=== PATIENT | female | born 1955 | race Caucasian/White ===

== ENCOUNTER 2018-03-25 13:32 | Emergency (ER) | payer SELFPAY | END 2018-03-25 15:57 | disposition home or self-care (01) | LOC: ED 13:32 ==

== ENCOUNTER 2018-12-15 12:27 | Inpatient (IN) | payer MEDICAID ==
[~2018-12-15] VITALS: Ht 157.5 cm; Wt 65.3 kg
[2018-12-15 12:39] VITALS: Ht 157.5 cm; Wt 65.3 kg
--- NOTE | 2018-12-15 12:42 | NUR ---
EKG IN PROGRESS IN TRIAGE.
[2018-12-15 12:56] LABS: BASOPHIL % 0.6 % (0-2); PLATELET COUNT 307 x10^3mcL (130-400)
[2018-12-15 13:03] LABS: RED CELL DISTRIBUTION WIDTH 15.3 % (11.5-14.5)
[2018-12-15 13:25] LABS: CALCIUM 9.5 mg/dL (8.5-10.1); CARBON DIOXIDE 29.1 mmol/L (21-32)
[2018-12-15 13:29] LABS: ALBUMIN 3.6 g/dL (3.4-5.0); BILIRUBIN TOTAL 0.2 mg/dL (0.20-1.00)
--- NOTE | 2018-12-15 13:39 | NUR ---
REPORT GIVEN TO HUMERA BROWN, UPDATED ON STATUS, LABS AND VITALS. PT STABLE FOR TRANSFER. VSS. BELONGINGS WITH PT.
--- NOTE | 2018-12-15 13:59 | NUR ---
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 PT NOW DENIES ANY CHEST PAIN BUT NOW COMPLAINS OF A HEADACHE. DENIES ANY VISION CHANGES. DENIES ANY RECENT FEVERS/CHILLS. RESP EVEN AND UNLABORED, IN NAD. SKIN W/D/I. DTR AT BEDSIDE. NSR ON MONITOR AT THIS TIME.
--- NOTE | 2018-12-15 16:23 | NUR ---
NO ACUTE CHANGES IN CONDITION, PT IN NAD. RESTING ON GURNEY WITH EYES CLOSED. VSS, NSR ON MONITOR.
[2018-12-15] MEDS ORDERED: ATORVASTATIN CA40 M1 PO (16:29)
[2018-12-15] MEDS ORDERED: LOSARTAN POTASS25 M1 PO (16:29)
[2018-12-15 16:47] LABS: FREE T4 0.89 ng/dL (0.76-1.46); FREE THYROXINE INDEX 2.7 ug/dL (1.4-4.5); T4(THYROXINE) 7.4 ug/dL (4.7-13.3)
[2018-12-15 16:50] LABS: T3 TOTAL 0.99 ng/mL
[2018-12-15 16:59] LABS: CHOLESTEROL/HDL RATIO 5.9
[2018-12-15 17:33] VITALS: BP 141/70
--- NOTE | 2018-12-15 17:41 | NUR ---
RECEIVED PT FROM ER, PT ADMIT FOR CHEST PAIN, PT IS A/O X4, VERBAL RESPONSIVE, LUNG SOUND CLEAR BILATERAL,NO COUGH, NO SOB, PT IS ON TELE 1, SBR WITH OCCASIONALLY PAC, DENY ANY CHEST PAIN AT THIS MOMENT, BOWEL SOUND PRESENT ALL 4 QUADRANTS, NO DISTENTION, PT C/O ACID REFLEX AT THIS MOMENT, C/O LEFT LOWER QUARANT PAIN 2/10, ALSO C/O CONSTIPATION. PEDAL PULSE PRESENT BOTH FEET, NO EDEMA, IV AT LEFT AC, NO LEAKING, NO INFITLRATION. ALL ADLS ASSIST, ALL NEED MET, CALL LIGHT IN REACH, WILL CONTINUE TO MONITOR.
--- NOTE | 2018-12-15 18:48 | NUR ---
A&OX4, FOLLOWS COMMANDS. DENIES PAIN OR DISCOMFORT. TELE #1, SINUS EVER, 50'S BPM. BRP TOLERATES WELL. ABLE TO AMBULATE, NO SOB. ATE 80% DINNER. IV SITE LAC CDI. COOPERATES WELL.
--- NOTE | 2018-12-15 19:22 | NUR ---
NURSING CO-SIGN THE DOCUMENTATION ENTERED BY THE IP HAS BEEN REVIEWED. REVIEWED/CO-SIGNED BY: Lesley Mantilla DOCUMENTATION DONE BY: PAVITHRA GREGORY RN.
--- NOTE | 2018-12-15 19:44 | NUR ---
PT RECIEVED FROM DAY NURSE. PT RESTING IN BED AT THIS TIME. DENIES PAIN OR DISCOMFORT. A/O X4, CALM AND COOPERATIVE AT THIS TIME. TELE 1, NSR. DENIES CP, NV, DIZZINESS, AND PALPATATIONS. PALPABLE PULSES, NO EDEMA NOTED AT THIS TIME. BREATHIING E/U ON RA. ABD SOFT AND ROUND, DENIES PAIN TO PALPATION. PT AMBULATORY. IV TO LAC, CDI. BED AT LOWEST POSITION. CALL LIGHT WITHIN REACH. WILL CONTINUE TO MONITOR.
[2018-12-15 20:58] VITALS: BP 135/56
--- NOTE | 2018-12-16 | NUR ---
PT RESTING IN BED AT THIS TIME. BREATHING E/U ON RA. DENIES PAIN AT THIS TIME. NO SIGNS OF ACUTE DISTRESS AT THIS TIME. BED AT LOWEST POSITION. CALL LIGHT WITHIN REACH. WILL CONTINUE TO MONITOR.
[2018-12-16 05:20] VITALS: BP 116/67
--- NOTE | 2018-12-16 06:16 | NUR ---
PT RESTING IN BED AT THIS TIME. DENIES PAIN OR DISCOMFORT. BREATHING E/U ON RA. NO SIGNS OF ACUTE DISTRESS NOTED AT THIS TIME. BED AT LOWEST POSITION. CALL LIGHT WITHIN REACH. WILL ENDORSE TO DAY NURSE.
--- NOTE | 2018-12-16 07:53 | NUR ---
PT LYING IN BED A/A. BREATHING EQUAL/ UNLABORED ON RA. NO REDNESS/ SWELLING TO IV SITE. IVF RUNNING AT 10ML/HR. NO C/O PAIN AT THIS TIME. BED IN LOW POSITION, CALL LIGHT IN REACH, WILL CONTINUE TO MONITOR
[2018-12-16 07:55] LABS: BASOPHIL % 0.3 % (0-2); PLATELET COUNT 285 x10^3mcL (130-400)
[2018-12-16 07:57] LABS: CALCIUM 8.7 mg/dL (8.5-10.1); CARBON DIOXIDE 27.2 mmol/L (21-32); CHLORIDE SERUM 110 mmol/L (98-107); CREATININE SERUM 0.7 mg/dL (0.6-1.0); GFR1 > 60 mL/min; GLUCOSE SERUM 94 mg/dL (74-106); PHOSPHOROUS 3.8 mg/dL (2.5-4.9); POTASSIUM SERUM 4.8 mmol/L (3.5-5.1); SODIUM SERUM 144 mmol/L (136-145)
[2018-12-16 08:10] LABS: RED CELL DISTRIBUTION WIDTH 15.2 % (11.5-14.5)
[2018-12-16 08:29] VITALS: BP 136/65
[2018-12-16 10:31] LABS: microscopic required? NO
[2018-12-16 10:44] LABS: AMPHETAMINE QUAL UR NONE DETECTED (See below)
[2018-12-16 12:04] LABS: urine erythrocyte NEGATIVE (NEGATIVE)
[2018-12-16 12:12] VITALS: BP 134/60
[2018-12-16 12:19] VITALS: BP 120/57
--- NOTE | 2018-12-16 12:33 | NUR ---
PT SITTING UP IN BED A/A. BREATHING EQUAL/ UNLABORED ON RA. NO C/O CHEST PAIN. IVF RUNNING AT 10ML/HR. NO REDNESS/SWELLING TO IV SITE. BED IN LOW POSITION, CALL LIGHT IN REACH, WILL CONTINUE TO MONITOR
[2018-12-16] MEDS ORDERED: GOOD SENSE OMEP20 MG PO (14:49)
--- NOTE | 2018-12-16 16:13 | NUR ---
PT DC'D HOME, A/A OX4. BREATHING EQUAL/ [id number]. NO ACUTE DISTRESS/ PAIN. [employer]IVE GRADER ASSISTED WITH TRANSLATING. EDUCATION PROVIDED, PT VERBALIZED UNDERSTANDING. F/U INSTRUCTIONS GIVEN. NO RX GIVEN. IV REMOVED WITH CATHETER INTACT. TELE MONITOR REMOVED. PT BROUGHT DOWN TO LOBBY IN W/C BY OLIVE GRADER. ACCOMPANIED BY FAMILY. ALL BELONGINGS WITH PT.
--- NOTE | 2018-12-19 16:57 | NUR ---
Melanie Ward for 12/16/18 at 1307 [facility] card and [facility] to [facility] given to patient by Paulino Martin.
== END 2018-12-16 16:15 | disposition home or self-care (01) | DRG 203 ==
LOC: ED 12:27 → DU 16:03
PROVIDERS: ADMIT Internal Medicine
DX: M94.0 Chondrocostal junction syndrome [Tietze] (principal); E78.5 Hyperlipidemia, unspecified; R73.03 Prediabetes; I10 Essential (primary) hypertension; F41.9 Anxiety disorder, unspecified; F17.210 Nicotine dependence, cigarettes, uncomplicated; Z68.26 Body mass index [BMI] 26.0-26.9, adult
CPT/HCPCS: 83880; 84439; G0378; J1885